=== PATIENT | male | born 1965 | race Caucasian/White ===

== ENCOUNTER → 2024-05-13 09:29 | Outpatient (CLI) | payer OTHER, SELFPAY ==
[2024-05-13 10:44] LABS: Alanine Aminotransferase 40 IU/L (<50); Albumin 4.4 g/dL (3.5-5.0); Albumin Globulin Ratio 1.8 (1.0-2.8); Alkaline Phosphatase 61 U/L (38-126); Aspartate Aminotransferase 33 IU/L (17-59); Bilirubin Total 0.7 mg/dL (0.2-1.3); Bilirubin Unconjugated 0.5 mg/dL (0.0-1.1); Globulin 2.5 g/dL (1.7-4.1); HEMOLYSIS 16 (0-50); Total Protein 6.9 g/dL (6.3-8.2)
== END ==
LOC: LAB 09:33
PROVIDERS: Referring Provider Chiropractor; Visit Provider Chiropractor
DX: K73.9 Chronic hepatitis, unspecified (principal)
CPT/HCPCS: 36415; 80076